=== PATIENT | male | born 1955 | race Caucasian/White ===

== ENCOUNTER 2016-08-01 07:10 | Day surgery (SDC) | payer OTHER ==
[2016-07-28 10:04] VITALS: BMI 38.7
[2016-08-01] MEDS ORDERED: PROPOFOL 20 ML ONE ×2 (09:07)
[2016-08-01 10:14] VITALS: PULSE 78; TEMP 98.2
[2016-08-01 11:13] VITALS: BP 109/70
== END 2016-08-01 10:55 | disposition home or self-care (01) ==
LOC: FASU-ENDO 07:10
PROVIDERS: ATTEND Internal Medicine Gastroenterology
PROC: 0DJD8ZZ Inspection of Lower Intestinal Tract, Via Natural or Artificial Opening Endoscopic (ICD-10-PCS; principal; 2016-08-01 09:43)
DX: Z12.11 Encounter for screening for malignant neoplasm of colon (principal); K57.30 Diverticulosis of large intestine without perforation or abscess without bleeding